=== PATIENT | male | born 1955 | race Caucasian/White ===

== ENCOUNTER 2018-01-02 18:25 | Observation (INO) | payer BC ==
--- NOTE | 2018-01-02 19:01 | EDM.PDOC ---
ED HPI GENERAL MEDICAL PROBLEM - General Chief Complaint: Respiratory Problem Stated Complaint: SOB Time Seen by Provider: 01/02/18 18:28 Source of Information: Reports: Patient History Limitations: Reports: No Limitations - History of Present Illness INITIAL COMMENTS - FREE TEXT/NARRATIVE: Patient presents to ER with complaints of shortness of breath and muscle spasms. Has been dealing with shortness of breath for over 3 years, had an extensive work up done through the [place] as he relates he was worried about asbestos exposure. He was told his lungs "were good". He states was at work and he felt more short of breath today [facility]. 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 Gets them in his hands, legs and buttocks at times. Has a mild cough with clear sputum production. He denies any chest pain. States his lungs burn at times. No fevers. No sinus congestion or sore throat. No N/V/D. Does admit that he has suffered from anxiety for many years , was discharged from the [facility] because of it. Not currently on any Xanax or Ativan, states he deals with his anxiety by drinking whiskey. Duration: Week(s):, Chronic Location: Reports: Chest Quality: Reports: Burning Severity: Moderate Improves with: Reports: Rest Associated Symptoms: Reports: Cough, Shortness of Breath. Denies: Confusion, Chest Pain, Diaphoresis, Fever/Chills, Loss of Appetite, Nausea/Vomiting, Syncope, Weakness Bilateral Leg Pain Score (Numeric/FACES): 9 - Related Data Allergies Allergy/AdvReac Type Severity Reaction Status Date / Time No Known Allergies Allergy Verified 01/02/18 18:32 Home Meds: Home Meds Insulin Aspart [NovoLOG] 10 - 30 unit SQ TIDMEALS 12/06/13 [History] Insulin Detemir [Levemir] 70 units SQ BID 12/06/13 [History] Aspirin [Ecotrin] 81 mg PO DAILY 01/02/18 [History] Chlorthalidone 25 mg PO DAILY 01/02/18 [History] Losartan [Cozaar] 100 mg PO DAILY 01/02/18 [History] Naproxen Sodium [Aleve] 3 tab PO DAILY 01/02/18 [History] amLODIPine [Norvasc] 10 mg PO DAILY 01/02/18 [History] atorvaSTATin [Lipitor] 20 mg PO DAILY 01/02/18 [History] Past Medical History Cardiovascular History: Reports: High Cholesterol, Hypertension Psychiatric History: Reports: Anxiety Endocrine/Metabolic History: Reports: Diabetes, Type II - Past Surgical History GI Surgical History: Reports: Appendectomy, Colonoscopy Social & Family History - Tobacco Use Smoking Status *Q: Never Smoker Years of Tobacco use: 10 Used Tobacco, but Quit: Yes Month/Year Tobacco Last Used: 09/20/2008 Second Hand Smoke Exposure: Yes - Alcohol Use Days Per Week of Alcohol Use: 7 Number of Drinks Per Day: 2 Total Drinks Per Week: 14 - Recreational Drug Use Recreational Drug Use: Yes Recreational Drug Type: Reports: Marijuana/Hashish Recreational Drug Use Frequency: Rarely ED ROS GENERAL - Review of Systems Review Of Systems: See Below Constitutional: Denies: Fever, Chills, Malaise, Weakness, Decreased Appetite HEENT: Denies: Ear Pain, Sinus Problem, Throat Pain Respiratory: Reports: Shortness of Breath, Cough, Sputum. Denies: Wheezing Cardiovascular: Denies: Chest Pain, Edema, Lightheadedness Endocrine: Reports: Fatigue GI/Abdominal: Denies: Abdominal Pain, Constipation, Diarrhea, Nausea, Vomiting : Reports: No Symptoms Musculoskeletal: Reports: Leg Pain, Muscle Pain Skin: Reports: No Symptoms Neurological: Reports: No Symptoms ED EXAM, GENERAL - Physical Exam Exam: See Below Exam Limited By: No Limitations General Appearance: Alert, WD/WN, No Apparent Distress Ears: Normal External Exam, Normal TMs Nose: Normal Inspection, Normal Mucosa, No Blood Throat/Mouth: Normal Inspection, Normal Oropharynx Head: Normocephalic Neck: Normal Inspection, Supple, Non-Tender Respiratory/Chest: No Respiratory Distress, Lungs Clear, Normal Breath Sounds Cardiovascular: Regular Rate, Rhythm GI/Abdominal: Normal Bowel Sounds, Soft, Non-Tender Extremities: No: Pedal Edema Neurological: Alert, Oriented Skin Exam: Warm, Dry Course - Vital Signs Last Recorded V/S: Last Vital Signs Temp 97.6 F 01/02/18 18:26 Pulse 78 01/02/18 18:26 Resp 20 01/02/18 18:26 BP 127/70 01/02/18 18:26 Pulse Ox 97 01/02/18 18:26 - Orders/Labs/Meds Orders: Active Orders 24 hr Category Date Time Status Chest 1V Frontal [CR] Stat Exams 01/02/18 18:37 Taken EKG 12 Lead [EK] Stat Ther 01/02/18 18:38 Ordered Labs: Laboratory Tests 01/02/18 01/02/18 01/02/18 Range/Units 18:45 18:45 18:45 WBC 10.5 H (5.0-10.0) 10^3/uL RBC 4.54 (4.50-6.00) 10^6/uL Hgb 14.3 (14.0-18.0) g/dL Hct 40.3 (40.0-54.0) % MCV 88.8 (82.0-94.0) fL MCH 31.5 (27.0-32.0) pg MCHC 35.5 (33.0-38.0) g/dL RDW Coeff of [place] 13.0 (11.0-15.0) % Plt Count 194 (150-400) 10^3/uL Neut % (Auto) 63.7 (35-85) % Lymph % (Auto) 25.3 (10-55) % [place] % (Auto) 7.6 (0-16) % Eos % (Auto) 2.9 (0-5) % Baso % (Auto) 0.5 (0-3) % Neut # (Auto) 6.70 (1.80-7.00) 10^3/uL Lymph # (Auto) 2.66 (1.00-4.80) 10^3/uL [place] # (Auto) 0.80 (0.00-0.80) 10^3/uL Eos # (Auto) 0.30 (0.00-0.45) 10^3/uL Baso # (Auto) 0.05 10^3/uL D-Dimer, Quantitative 0.21 (0.00-0.50) Sodium 136 (136-145) mEq/L Potassium 2.5 L* D (3.5-5.0) mEq/L Chloride 94 L (98-106) mEq/L Carbon Dioxide 27 (21-32) mmol/L BUN 38 H D (7-18) mg/dL Creatinine 1.7 H D (0.7-1.3) mg/dL Est Cr Clr Drug Dosing 55.31 mL/min Estimated GFR (MDRD) 41 L (>=60) mL/min Glucose 180 H D (75-99) mg/dL Calcium 9.9 (8.4-10.1) mg/dL Magnesium 2.2 (1.8-2.4) mg/dL C-Reactive Protein 2.3 H (0.2-0.8) mg/dL NT-Pro-B Natriuret Pep 923 (0-1000) pg/mL - Re-Assessments/Exams Free Text/Narrative Re-Assessment/Exam: 01/02/18 19:33 Labs reviewed. Potassium is 2.5, creatinine 1.7. Will admit for observation to Dr. Scanlon for IV fluids with potassium replacement. Departure - Departure Time of Disposition: 19:34 Disposition: Refer to Observation Condition: Fair Clinical Impression: Hypokalemia - Discharge Information - Problem List & Annotations (1) Muscle cramps SNOMED Code(s): 87191965 Code(s): R25.2 - CRAMP AND SPASM Status: Acute Priority: High Current Visit: Yes (2) Hypokalemia SNOMED Code(s): 67201911 Code(s): E87.6 - HYPOKALEMIA Status: Acute Priority: High Current Visit : Yes - Problem List Review Problem List Initiated/Reviewed/Updated: Yes - My Orders Last 24 Hours: My Active Orders 01/02/18 18:37 Chest 1V Frontal [CR] Stat 01/02/18 18:38 EKG 12 Lead [EK] Stat - Assessment/Plan Admission H&P: Please use this note as an admission H&P Last 24 Hours: My Active Orders 01/02/18 18:37 Chest 1V Frontal [CR] Stat 01/02/18 18:38 EKG 12 Lead [EK] Stat Assessment:: Hypokalemia Muscle spasms Plan: Admit for observation to Dr. Scanlon for potassium replacement as is symptomatic at this time. Patient aware.
[2018-01-02] MEDS ORDERED: Ondansetron 4 MG Tab.DIS PO PRN (19:53)
[2018-01-02] MEDS ORDERED: Potassium Chloride 40 MEQ in Premix Bag 1 BAG IV ONE (19:53)
[2018-01-02] MEDS ORDERED: Ondansetron 4 MG/2 ML SDV IV PRN (19:53)
[2018-01-02] MEDS ORDERED: Acetaminophen 325 MG Tab PO PRN (19:53)
[2018-01-02] MEDS ORDERED: Sodium Chloride 0.9% 10 ML Syringe FLUSH PRN (19:53)
[2018-01-02] MEDS ORDERED: ALPRAZolam 0.25 MG Tab PO PRN (19:53)
[2018-01-02] MEDS ORDERED: Sodium Chloride 0.9% 1,000 ML IV ONE (19:53)
[2018-01-02] MEDS ORDERED: Insulin Detemir 100 Units/ML 3 ML Pen SUBCUT SCH (20:00)
[2018-01-02] MEDS: Enoxaparin 40 MG/0.4 ML Syringe SUBCUT SCH (20:13)
[2018-01-02] MEDS ORDERED: Insulin Aspart 100 Units/ML 3 ML Pen ONE (21:30)
[2018-01-03] MEDS: NS + KCl 20mEq/L 1,000 ML IV SCH ×2 (00:24→18:04)
[2018-01-03] MEDS: Insulin Detemir 100 Units/ML 3 ML Pen SUBCUT SCH ×2 (03:29→17:25)
[2018-01-03 07:24] LABS: CHLORIDE,CL 98 mEq/L (98-106)
[2018-01-03 07:27] LABS: SODIUM,NA 139 mEq/L (136-145)
[2018-01-03] MEDS ORDERED: Potassium Chloride 40 MEQ in Premix Bag 1 BAG IV ONE (08:45)
--- NOTE | 2018-01-03 08:53 | PCM.PN ---
- General Info Date of Service: 01/03/18 Admission Dx/Problem (Free Text): Hyponatremia Functional Status: Reports: Pain Controlled, Tolerating Diet, Ambulating - Review of Systems General: Reports: Fatigue. Denies: Fever, Weakness HEENT: Reports: No Symptoms Pulmonary: Denies: Shortness of Breath, Cough Cardiovascular: Denies: Chest Pain, Edema, Lightheadedness Gastrointestinal: Denies: Abdominal Pain, Nausea, Vomiting Genitourinary: Reports: No Symptoms Musculoskeletal: Denies: Leg Pain (states not having any further leg cramps this am) Skin: Reports: No Symptoms Neurological: Reports: No Symptoms - Patient Data Vitals - Most Recent: Last Vital Signs Temp 96.5 F 01/03/18 07:23 Pulse 70 01/03/18 07:23 Resp 19 01/03/18 07:23 BP 128/65 01/03/18 07:23 Pulse Ox 97 01/03/18 07:23 Weight - Most Recent: 260 lb Lab Results Last 24 Hours: Laboratory Results - last 24 hr 01/02/18 01/02/18 01/02/18 Range/Units 18:45 18:45 18:45 WBC 10.5 H (5.0-10.0) 10^3/uL RBC 4.54 (4.50-6.00) 10^6/uL Hgb 14.3 (14.0-18.0) g/dL Hct 40.3 (40.0-54.0) % MCV 88.8 (82.0-94.0) fL MCH 31.5 (27.0-32.0) pg MCHC 35.5 (33.0-38.0) g/dL RDW Coeff of [place] 13.0 (11.0-15.0) % Plt Count 194 (150-400) 10^3/uL Neut % (Auto) 63.7 (35-85) % Lymph % (Auto) 25.3 (10-55) % [place] % (Auto) 7.6 (0-16) % Eos % (Auto) 2.9 (0-5) % Baso % (Auto) 0.5 (0-3) % Neut # (Auto) 6.70 (1.80-7.00) 10^3/uL Lymph # (Auto) 2.66 (1.00-4.80) 10^3/uL [place] # (Auto) 0.80 (0.00-0.80) 10^3/uL Eos # (Auto) 0.30 (0.00-0.45) 10^3/uL Baso # (Auto) 0.05 10^3/uL D-Dimer, Quantitative 0.21 (0.00-0.50) Sodium 136 (136-145) mEq/L Potassium 2.5 L* D (3.5-5.0) mEq/L Chloride 94 L (98-106) mEq/L Carbon Dioxide 27 (21-32) mmol/L BUN 38 H D (7-18) mg/dL Creatinine 1.7 H D (0.7-1.3) mg/dL Est Cr Clr Drug Dosing 55.31 mL/min Estimated GFR (MDRD) 41 L (>=60) mL/min Glucose 180 H D (75-99) mg/dL POC Glucose (75-105) mg/dl Calcium 9.9 (8.4-10.1) mg/dL Magnesium 2.2 (1.8-2.4) mg/dL C-Reactive Protein 2.3 H (0.2-0.8) mg/dL NT-Pro-B Natriuret Pep 923 (0-1000) pg/mL 01/02/18 01/03/18 01/03/18 Range/Units 20:27 06:55 06:55 WBC 9.0 (5.0-10.0) 10^3/uL RBC 4.40 L (4.50-6.00) 10^6/uL Hgb 13.8 L (14.0-18.0) g/dL Hct 40.2 (40.0-54.0) % MCV 91.4 (82.0-94.0) fL MCH 31.4 (27.0-32.0) pg MCHC 34.3 (33.0-38.0) g/dL RDW Coeff of [place] 13.1 (11.0-15.0) % Plt Count 164 (150-400) 10^3/uL Neut % (Auto) 66.6 (35-85) % Lymph % (Auto) 22.2 (10-55) % [place] % (Auto) 7.5 (0-16) % Eos % (Auto) 3.3 (0-5) % Baso % (Auto) 0.4 (0-3) % Neut # (Auto) 5.97 (1.80-7.00) 10^3/uL Lymph # (Auto) 1.99 (1.00-4.80) 10^3/uL [place] # (Auto) 0.67 (0.00-0.80) 10^3/uL Eos # (Auto) 0.30 (0.00-0.45) 10^3/uL Baso # (Auto) 0.04 10^3/uL D-Dimer, Quantitative (0.00-0.50) Sodium 139 (136-145) mEq/L Potassium 2.8 L* (3.5-5.0) mEq/L Chloride 98 (98-106) mEq/L Carbon Dioxide 30 (21-32) mmol/L BUN 28 H (7-18) mg/dL Creatinine 1.0 (0.7-1.3) mg/dL Est Cr Clr Drug Dosing 94.03 mL/min Estimated GFR (MDRD) > 60 (>=60) mL/min Glucose 81 D (75-99) mg/dL POC Glucose 218 H (75-105) mg/dl Calcium 8.9 (8.4-10.1) mg/dL Magnesium (1.8-2.4) mg/dL C-Reactive Protein 2.2 H (0.2-0.8) mg/dL NT-Pro-B Natriuret Pep (0-1000) pg/mL 01/03/18 Range/Units 07:26 WBC (5.0-10.0) 10^3/uL RBC (4.50-6.00) 10^6/uL Hgb (14.0-18.0) g/dL Hct (40.0-54.0) % MCV (82.0-94.0) fL MCH (27.0-32.0) pg MCHC (33.0-38.0) g/dL RDW Coeff of [place] (11.0-15.0) % Plt Count (150-400) 10^3/uL Neut % (Auto) (35-85) % Lymph % (Auto) (10-55) % [place] % (Auto) (0-16) % Eos % (Auto) (0-5) % Baso % (Auto) (0-3) % Neut # (Auto) (1.80-7.00) 10^3/uL Lymph # (Auto) (1.00-4.80) 10^3/uL [place] # (Auto) (0.00-0.80) 10^3/uL Eos # (Auto) (0.00-0.45) 10^3/uL Baso # (Auto) 10^3/uL D-Dimer, Quantitative (0.00-0.50) Sodium (136-145) mEq/L Potassium (3.5-5.0) mEq/L Chloride (98-106) mEq/L Carbon Dioxide (21-32) mmol/L BUN (7-18) mg/dL Creatinine (0.7-1.3) mg/dL Est Cr Clr Drug Dosing mL/min Estimated GFR (MDRD) (>=60) mL/min Glucose (75-99) mg/dL POC Glucose 53 L (75-105) mg/dl Calcium (8.4-10.1) mg/dL Magnesium (1.8-2.4) mg/dL C-Reactive Protein (0.2-0.8) mg/dL NT-Pro-B Natriuret Pep (0-1000) pg/mL Med Orders - Current: Current Medications Acetaminophen (Tylenol) 650 mg PO Q4H PRN PRN Reason: Pain (Mild 1-3)/fever Alprazolam (Xanax) 0.25 mg PO Q6H PRN PRN Reason: Anxiety Amlodipine Besylate (Norvasc) 10 mg PO DAILY [facility] Aspirin (Halfprin) 81 mg PO DAILY [facility] Atorvastatin Calcium (Lipitor) 20 mg PO DAILY [facility] Enoxaparin Sodium (Lovenox) 40 mg SUBCUT Q24H [facility] Last Admin: 01/02/18 20:13 Dose: 40 mg Potassium Chloride/Sodium Chloride (Normal Saline With 20 Meq Kcl) 1,000 mls @ 100 mls/hr IV ASDIRECTED [facility] Last Admin: 01/03/18 00:24 Dose: 100 mls/hr Potassium Chloride 40 meq/ (Premix) 100 mls @ 25 mls/hr IV ONETIME ONE Stop: 01/03/18 12:26 Insulin Aspart (Novolog) 10 - 30 unit SUBCUT TIDMEALS [facility] Insulin Detemir (Levemir) 0 unit SUBCUT Q12H [facility] Last Admin: 01/03/18 03:29 Dose: 70 units Losartan Potassium (Cozaar) 100 mg PO DAILY [facility] Ondansetron HCl (Zofran Odt) 4 mg PO Q4H PRN PRN Reason: nausea, able to take PO Ondansetron HCl (Zofran) 4 mg IV Q4H PRN PRN Reason: Nausea/Vomiting Potassium Chloride (Klor-Con 10) 20 meq PO DAILY [facility] Sodium Chloride (Saline Flush) 10 ml FLUSH ASDIRECTED PRN PRN Reason: Keep Vein Open Discontinued Medications Potassium Chloride 40 meq/ (Premix) 100 mls @ 25 mls/hr IV ONETIME ONE Stop: 01/02/18 23:52 Last Admin: 01/02/18 20:13 Dose: 25 mls/hr Sodium Chloride (Normal Saline) 1,000 mls @ 150 mls/hr IV ONETIME ONE Stop: 01/03/18 02:32 Last Admin: 01/02/18 20:13 Dose: 250 mls/hr Insulin Aspart (Novolog) Confirm Administered Dose 300 unit .ROUTE .STK-MED ONE Stop: 01/02/18 21:31 Last Admin: 01/02/18 21:16 Dose: Not Given Insulin Detemir (Levemir) 0 unit SUBCUT BID [facility] Last Admin: 01/02/18 21:17 Dose: Not Given - Exam General: Alert, Oriented HEENT: Mucous Membr. Moist/[place] Neck: Supple Lungs: Clear to Auscultation, Normal Respiratory Effort Cardiovascular: Regular Rate, Regular Rhythm GI/Abdominal Exam: Normal Bowel Sounds, Soft, Non-Tender Extremities: Normal Inspection, No Pedal Edema Skin: Warm, Dry Neurological: No New Focal Deficit - Problem List & Annotations (1) Muscle cramps SNOMED Code(s): 77105292 Code(s): R25.2 - CRAMP AND SPASM Status: Acute Priority: High Current Visit: Yes (2) Hypokalemia SNOMED Code(s): 61872510 Code(s): E87.6 - HYPOKALEMIA Status: Acute Priority: High Current Visit : Yes - Problem List Review Problem List Initiated/Reviewed/Updated: Yes - My Orders Last 24 Hours: My Active Orders 01/02/18 18:37 Chest 1V Frontal [CR] Stat 01/02/18 19:38 Resuscitation Status Routine 01/02/18 19:53 Patient Status [ADT] Routine Cardiac Monitoring [RC] Oxygen Therapy [RC] .PRN Peripheral IV Care [RC] 799,1999 Up With Assistance [RC] .PRN Vital Signs [RC] 0000,0400,0800,1200,1600,2000 ALPRAZolam [Xanax] 0.25 mg PO Q6H PRN Acetaminophen [Tylenol] 650 mg PO Q4H PRN NS + KCl 20mEq/L [Normal Saline with 20 mEq KCl] 1,000 ml IV ASDIRECTED Ondansetron [Zofran ODT] 4 mg PO Q4H PRN Ondansetron [Zofran] 4 mg IV Q4H PRN Sodium Chloride 0.9% [Saline Flush] 10 ml FLUSH ASDIRECTED PRN Peripheral IV Insertion Adult [OM.PC] Routine 01/02/18 20:00 Enoxaparin [Lovenox] 40 mg SUBCUT Q24H 01/02/18 Breakfast Consistent Carbohydrate Diet [DIET] 01/03/18 03:00 Insulin Detemir [Levemir] 0 unit SUBCUT Q12H 01/03/18 08:00 Aspirin [Halfprin] 81 mg PO DAILY Insulin Aspart [NovoLOG] 10 - 30 unit SUBCUT TIDMEALS Losartan [Cozaar] 100 mg PO DAILY amLODIPine [Norvasc] 10 mg PO DAILY atorvaSTATin [Lipitor] 20 mg PO DAILY 01/03/18 08:27 Potassium Chloride [KCL 40 MEQ in Water 100 ML] 40 meq Premix Bag 1 bag IV ONETIME 01/03/18 08:45 Potassium Chloride [Klor-Con 10] 20 meq PO DAILY 01/03/18 15:00 POTASSIUM,K [CHEM] Routine - Assessment Assessment:: Hyponatremia - Plan Plan:: Patient feeling good this am, states tired but not feeling short of breath. No further leg cramping this am. Appetite is good. Does not feel as anxious this am. Potassium still low at 2.8. Blood pressure maintaining normotensive without the Chlorthalidone at this point. Will give additional IV potassium, started on oral potassium today. Will repeat potassium labs this afternoon and proceed from there. Continue to hold chlorthalidone.
[2018-01-03] MEDS: Potassium Chloride 10 MEQ Tab.ER PO SCH (08:57)
[2018-01-03] MEDS: Aspirin 81 MG Tab.EC PO SCH (08:57)
[2018-01-03] MEDS: Insulin Aspart 100 Units/ML 3 ML Pen SUBCUT SCH ×3 (08:58→17:27)
[2018-01-03] MEDS ORDERED: Sodium Chloride 0.9% 250 ML ONE (09:11)
[2018-01-03] MEDS: Losartan 100 MG Tab PO SCH (17:22)
[2018-01-03] MEDS: **PTOM** atorvaSTATin 20 MG Tab PO SCH (17:22)
[2018-01-03] MEDS: **PTOM** amLODIPine 10 MG Tab PO SCH (17:23)
[2018-01-03] MEDS: Enoxaparin 40 MG/0.4 ML Syringe SUBCUT SCH (20:26)
[2018-01-04] MEDS: Insulin Detemir 100 Units/ML 3 ML Pen SUBCUT SCH (03:10)
[2018-01-04] MEDS: NS + KCl 20mEq/L 1,000 ML IV SCH (03:14)
[2018-01-04 07:30] LABS: CHLORIDE,CL 100 mEq/L (98-106); SODIUM,NA 140 mEq/L (136-145)
[2018-01-04] MEDS: **PTOM** atorvaSTATin 20 MG Tab PO SCH (07:49)
[2018-01-04] MEDS: Losartan 100 MG Tab PO SCH (07:49)
[2018-01-04] MEDS: **PTOM** amLODIPine 10 MG Tab PO SCH (07:50)
[2018-01-04] MEDS: Insulin Aspart 100 Units/ML 3 ML Pen SUBCUT SCH (07:52)
[2018-01-04] MEDS ORDERED: **PTOM** atorvaSTATin 20 MG Tab PO SCH (08:00)
[2018-01-04] MEDS: Potassium Chloride 10 MEQ Tab.ER PO SCH (08:02)
[2018-01-04] MEDS: Aspirin 81 MG Tab.EC PO SCH (08:02)
--- NOTE | 2018-01-05 20:39 | PCM.DCSUM1 ---
Discharge Summary - Hospital Course Free Text/Narrative:: Patient presented to ER with complaints of shortness of breath and muscle cramps. Has been having issues with shortness of breath for years but believes it was worse day of admission. Had been having frequent muscle cramps which he feels increased his anxiety and shortness of breath. Has had extensive work up through the [place] for his shortness of breath without finding a source. Long history of anxiety back to early years in the [employer]. Not currently on any medication for his anxiety. Today, felt more uncomfortable, having intense cramping in his hands, legs and buttocks. Was found to have a potassium of 2.5 in ER. Admitted for IV potassium replacement, cardiac monitoring. Chlorthalidone held - Discharge Data Discharge Date: 01/04/18 Discharge Disposition: Home, Self-Care 01 Preliminary Cause of *Q: Respiratory Failure Condition: Good - Discharge Diagnosis/Problem(s) (1) Muscle cramps SNOMED Code(s): 76675075 ICD Code: R25.2 - CRAMP AND SPASM Status: Acute Priority: High (2) Hypokalemia SNOMED Code(s): 13312974 ICD Code: E87.6 - HYPOKALEMIA Status: Acute Priority: High - Patient Summary/Data Complications: none Hospital Course: Patient admitted with a potassium of 2.5. Started on NS with 40 meq of potassium. Cardiac monitoring. Other labs unremarkable. Slow improvement of his potassium level. Much improvement of the muscle cramping as potassium levels improving. No further cramping by discharge. No telemetry changes noted. Chlorthalidone on hold but blood pressure remains stable yet on discharge. Potassium 3.7 today Will continue to hold Chlorthalidone, potassium 20 meq daily until follow up appointment with Dr. Ellison next week at the [place]. Monitor blood pressure and report changes to Dr. Irena Ellison at the [facility] - Patient Instructions Diet: Diabetic Diet Activity: As Tolerated - Discharge Plan Prescriptions/Med Rec: Potassium Chloride [Klor-Con 10] 20 meq PO DAILY #10 tab.er Home Medications: Home Meds Insulin Aspart [NovoLOG] 10 - 30 unit SQ TIDMEALS 12/06/13 [History] Insulin Detemir [Levemir] 70 units SQ BID 12/06/13 [History] Aspirin [Ecotrin] 81 mg PO DAILY 01/02/18 [History] Losartan [Cozaar] 100 mg PO DAILY 01/02/18 [History] Naproxen Sodium [Aleve] 3 tab PO DAILY 01/02/18 [History] amLODIPine [Norvasc] 10 mg PO DAILY 01/02/18 [History] atorvaSTATin [Lipitor] 20 mg PO DAILY 01/02/18 [History] Potassium Chloride [Klor-Con 10] 20 meq PO DAILY #10 tab.er 01/04/18 [Rx] Patient Handouts: Muscle Cramps and Spasms, Hypokalemia Forms: ED Department Discharge Referrals: Mary Ellison MD [Ordering Only Provider] - (Follow up with Dr. Irena Ellison in one week, needs panel 8 at that time.) - Discharge Summary/Plan Comment DC Time >30 min.: No Discharge Summary/Plan Comment: Discharge home. Continue potassium 20 mEq daily. Hold Chlorthalidone. Follow up for labs and recheck with DR. Irena Ellison next week. - General Info Date of Service: 01/04/18 Admission Dx/Problem (Free Text: Hyponatremia Functional Status: Reports: Pain Controlled, Tolerating Diet, Ambulating - Review of Systems General: Reports: Weakness. Denies: Fever, Fatigue HEENT: Reports: No Symptoms Pulmonary: Denies: Shortness of Breath, Cough Cardiovascular: Reports: Edema, Lightheadedness. Denies: Chest Pain Gastrointestinal: Reports: No Symptoms Musculoskeletal: Reports: No Symptoms Skin: Reports: No Symptoms Neurological: Reports: No Symptoms - Patient Data Vitals - Most Recent: Last Vital Signs Temp 99.0 F 01/04/18 07:43 Pulse 69 01/04/18 07:43 Resp 20 01/04/18 07:43 BP 134/66 01/04/18 07:50 Pulse Ox 98 01/04/18 07:43 Weight - Most Recent: 260 lb Med Orders - Current: Current Medications Discontinued Medications Acetaminophen (Tylenol) 650 mg PO Q4H PRN PRN Reason: Pain (Mild 1-3)/fever Alprazolam (Xanax) 0.25 mg PO Q6H PRN PRN Reason: Anxiety Amlodipine Besylate (Norvasc) 10 mg PO DAILY [facility] Last Admin: 01/04/18 07:50 Dose: 10 mg Aspirin (Halfprin) 81 mg PO DAILY [facility] Last Admin: 01/04/18 08:02 Dose: 81 mg Atorvastatin Calcium (Lipitor) 20 mg PO DAILY [facility] Last Admin: 01/03/18 17:22 Dose: 20 mg Atorvastatin Calcium (Lipitor) 10 mg PO DAILY [facility] Last Admin: 01/04/18 09:16 Dose: 10 mg Enoxaparin Sodium (Lovenox) 40 mg SUBCUT Q24H [facility] Last Admin: 01/03/18 20:26 Dose: 40 mg Potassium Chloride 40 meq/ (Premix) 100 mls @ 25 mls/hr IV ONETIME ONE Stop: 01/02/18 23:52 Last Admin: 01/02/18 20:13 Dose: 25 mls/hr Sodium Chloride (Normal Saline) 1,000 mls @ 150 mls/hr IV ONETIME ONE Stop: 01/03/18 02:32 Last Admin: 01/02/18 20:13 Dose: 250 mls/hr Potassium Chloride/Sodium Chloride (Normal Saline With 20 Meq Kcl) 1,000 mls @ 100 mls/hr IV ASDIRECTED [facility] Last Admin: 01/04/18 03:14 Dose: 100 mls/hr Potassium Chloride 40 meq/ (Premix) 100 mls @ 25 mls/hr IV ONETIME ONE Stop: 01/03/18 12:44 Last Admin: 01/03/18 08:59 Dose: 25 mls/hr Sodium Chloride (Normal Saline) Confirm Administered Dose 250 mls @ as directed .ROUTE .STK-MED ONE Stop: 01/03/18 09:12 Last Admin: 01/03/18 09:10 Dose: 25 mls/hr Insulin Aspart (Novolog) 10 - 30 unit SUBCUT TIDMEALS [facility] Last Admin: 01/04/18 07:52 Dose: 20 units Insulin Aspart (Novolog) Confirm Administered Dose 300 unit .ROUTE .STK-MED ONE Stop: 01/02/18 21:31 Last Admin: 01/02/18 21:16 Dose: Not Given Insulin Detemir (Levemir) 0 unit SUBCUT BID [facility] Last Admin: 01/02/18 21:17 Dose: Not Given Insulin Detemir (Levemir) 0 unit SUBCUT Q12H [facility] Last Admin: 01/04/18 03:10 Dose: 70 units Losartan Potassium (Cozaar) 100 mg PO DAILY [facility] Last Admin: 01/04/18 07:49 Dose: 100 mg Ondansetron HCl (Zofran Odt) 4 mg PO Q4H PRN PRN Reason: nausea, able to take PO Ondansetron HCl (Zofran) 4 mg IV Q4H PRN PRN Reason: Nausea/Vomiting Potassium Chloride (Klor-Con 10) 20 meq PO DAILY [facility] Last Admin: 01/04/18 08:02 Dose: 20 meq Sodium Chloride (Saline Flush) 10 ml FLUSH ASDIRECTED PRN PRN Reason: Keep Vein Open - Exam General: Reports: Alert, Oriented HEENT: Reports: Mucous Membr. Moist/[place] Neck: Reports: Supple Lungs: Reports: Clear to Auscultation, Normal Respiratory Effort Cardiovascular: Reports: Regular Rate, Regular Rhythm GI/Abdominal Exam: Normal Bowel Sounds, Soft, Non-Tender Extremities: Normal Inspection, No Pedal Edema Skin: Reports: Warm, Dry Neurological: Reports: No New Focal Deficit
== END 2018-01-04 10:45 | disposition home or self-care (01) ==
LOC: CC.ED 18:25 → CC.MS 19:09 → UNDOADMOB 19:09 → CC.MS 19:38
PROVIDERS: ADMIT Physician Assistant Medical; ATTEND Family Medicine
DX: E87.6 Hypokalemia (principal); E87.1 Hypo-osmolality and hyponatremia; E78.00 Pure hypercholesterolemia, unspecified; F41.9 Anxiety disorder, unspecified; E11.9 Type 2 diabetes mellitus without complications; Z90.49 Acquired absence of other specified parts of digestive tract; Z79.4 Long term (current) use of insulin; Z79.82 Long term (current) use of aspirin; Z79.899 Other long term (current) drug therapy
CPT/HCPCS: 36415; 71045; 80048; 82962; 83735; 83880; 84132; 85025; 85379; 86140; 93005; 96361; 96365; 96366; 96372; 96376; 99285; A9270-GY; G0378; J1650; J1815-GY; J3480; J7030; J7050

== ENCOUNTER → 2019-12-08 | Day surgery (SDC) | payer OTHER ==
[~2019-12-08] MED LIST: Midazolam 1 MG/ML 2 ML SDV IV ONE; Propofol 200 MG/20 ML SDV IV ONE; fentaNYL 100 MCG/2 ML SDV IV ONE
[2019-12-08] MEDS: Lactated Ringers 1,000 ML IV SCH (08:20)
--- NOTE | 2019-12-11 09:09 | OR ---
DATE OF OPERATION: 12/08/2019 PREOPERATIVE DIAGNOSIS: HISTORY OF POLYPS. POSTOPERATIVE DIAGNOSIS: HISTORY OF POLYPS. SURGEON: Danny Scanlon MD PROCEDURE: DIAGNOSTIC COLONOSCOPY WITH SNARE POLYPECTOMY X2. ANESTHESIA: MAC. COMPLICATIONS: None. SPECIMEN: Tubular adenomas x2, each approximately 0.5 cm. FINDINGS: 1. Full-length colonoscopy. 2. Poor bowel prep. 3. Tubular adenomas x2, see report. RECOMMENDATIONS: Followup colonoscopy in 5 years. INDICATIONS: The patient comes to us from the [place]. Nine years ago, he had a polypectomy by Dr. Torres. He has not had a followup colonoscopy since, he is overdue. DESCRIPTION OF PROCEDURE: The patient was prepped and draped, placed in the left lateral decubitus position. A lubricated Olympus colonoscope was inserted and easily advanced to the cecum. Direct visualization of the ileocecal valve and appendiceal orifice was accomplished. The bowel prep was poor. The patient had a lot of scattered areas of heavy stool. Multiple times the scope got clogged. We had to run a forceps down to unclog it. Many areas likely could not be visualized adequately enough to rule out smaller lesions. At the proximal transverse colon, the patient did have a stalk tubular adenoma removed easily with a snare and suctioned into polyp trap #1. The second polyp was located in the middle of the rectal vault, also removed with a snare and suctioned into polyp trap #2. There were scattered diverticula in the sigmoid area, but very mild in severity. No other gross abnormality, signs of colitis, vascular abnormalities, or bleeding sites could be seen. Retroflexion of the scope in the rectum could not be accomplished due to the volume of stool present. Upon direct withdrawal, no gross perirectal lesions were seen. The scope was removed safely. The patient was stable in recovery room. LILI/PLACIDO /[id number]
== END ==
LOC: CC.SDS 07:56
PROVIDERS: ATTEND Family Medicine
DX: Z12.11 Encounter for screening for malignant neoplasm of colon (principal); D12.3 Benign neoplasm of transverse colon; D12.8 Benign neoplasm of rectum; K57.30 Diverticulosis of large intestine without perforation or abscess without bleeding; E78.5 Hyperlipidemia, unspecified; I10 Essential (primary) hypertension; E11.8 Type 2 diabetes mellitus with unspecified complications; E55.9 Vitamin D deficiency, unspecified; F31.9 Bipolar disorder, unspecified; H26.9 Unspecified cataract; F10.20 Alcohol dependence, uncomplicated; H90.3 Sensorineural hearing loss, bilateral; Z90.49 Acquired absence of other specified parts of digestive tract; Z86.010 Personal history of colon polyps; Z79.4 Long term (current) use of insulin; Z98.890 Other specified postprocedural states; Z79.899 Other long term (current) drug therapy; Z87.891 Personal history of nicotine dependence; Y90.9 Presence of alcohol in blood, level not specified
CPT/HCPCS: 45385; J2250; J2704; J3010; J7120

== ENCOUNTER 2020-02-19 20:36 | Emergency (ER) | payer OTHER ==
[~2020-02-19 20:36] MED LIST changes: +Calcium Chloride 10% 1 GM/10 ML Syringe IVPUSH ONE; -Midazolam 1 MG/ML 2 ML SDV IV ONE; -Propofol 200 MG/20 ML SDV IV ONE; +Sodium Bicarbonate 8.4% 50 MEQ/50 ML Syringe IV ONE; +Sodium Chloride 0.9% 1,000 ML IV ONE; -fentaNYL 100 MCG/2 ML SDV IV ONE
[2020-02-19] MEDS: EPINEPHrine 1:10,000 1 MG/10 ML Syringe IVPUSH PRN ×3 (20:41→20:48)
--- NOTE | 2020-02-19 21:22 | EDM.PDOC ---
ED HPI GENERAL MEDICAL PROBLEM - General Chief Complaint: CPR in Progress Stated Complaint: CODE MARILU Time Seen by Provider: 02/19/20 20:36 Source of Information: Reports: EMS History Limitations: Reports: No Limitations - History of Present Illness INITIAL COMMENTS - FREE TEXT/NARRATIVE: Dawit presents to ED via [facility] with CPR in progress. Ambrose providing compressions. Zach airway in place with bilateral breath sounds. He apparently had witnessed collapse by someone who was driving by. 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 Time of collapse 1999. EMS dispatched and continued CPR. Patient arrived to ED at 2035. Pupils fixed and dilated. EMS reports he had 1 shockable rhythm, so received 1 shock, but otherwise has been PEA/asystole. 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 IO placed upon arrival and epi administered. Blood sugar 102. ACLS continued. Patient received epi x 3, CaCl x 1, and bicarb x1 without change in status. Pule checks remained asystole with escape beats. Attempted to contact family without success. Patient down approximately 40 minutes prior to arrival to ED. Ultimately, feel that patient has been down to long and continued CPR will not result in any improvement. Time of 2048. Onset: Today, Sudden Onset Date: 02/19/20 Onset Time: 20:00 - Related Data Allergies Allergy/AdvReac Type Severity Reaction Status Date / Time No Known Allergies Allergy Verified 02/19/20 21:15 Home Meds: Home Meds Insulin Aspart [NovoLOG] 12 unit SQ TIDMEALS 12/06/13 [History] Insulin Detemir [Levemir] 35 units SQ BID 12/06/13 [History] Aspirin [Ecotrin EC] 81 mg PO DAILY 01/02/18 [History] Chlorthalidone 25 mg PO DAILY 12/07/19 [History] Multivitamin [Multiple Vitamins] 1 each PO DAILY 12/07/19 [History] Naproxen 500 mg PO BID PRN 12/07/19 [History] Losartan [Cozaar] 100 mg PO DAILY 12/08/19 [History] Potassium Chloride 20 meq PO BID 12/08/19 [History] amLODIPine Besylate [Amlodipine Besylate] 10 mg PO DAILY 12/08/19 [History] atorvaSTATin Calcium [Atorvastatin Calcium] 10 mg PO BEDTIME 12/08/19 [History] metFORMIN HCl [Metformin HCl] 500 mg PO DAILY 12/08/19 [History] Past Medical History Cardiovascular History: Reports: High Cholesterol, Hypertension Psychiatric History: Reports: Anxiety Endocrine/Metabolic History: Reports: Diabetes, Type II - Past Surgical History GI Surgical History: Reports: Appendectomy, Colonoscopy Social & Family History - Caffeine Use Caffeine Use: Reports: None - Alcohol Use Alcohol Use History: Yes Alcohol Use Frequency: Binges, Daily Alcohol Use Comment: Per Family, patient was alcoholic, had apparently not been drinking recently ED ROS GENERAL - Review of Systems Review Of Systems: Unable To Obtain Reason Not Obtained: Unresponsive, CPR in progress ED EXAM, CPR - Physical Exam Exam: See Below Limited By: Unresponsive, Other (CPR in progress) Eye Exam: Bilateral Eye: Other (Fixed and dilated) Throat/Mouth: Other (Zach airway in place) Head: Atraumatic, Normocephalic Respiratory Chest: Other (breath sounds bilaterally with bagging) Cardiovascular: Pulse with Compression (femoral), CPR In Progress (Male) Exam: Scrotal Swelling Extremities: No Pedal Edema Neurological: Unresponsive Skin Exam: Cool Course - Orders/Labs/Meds Orders: Active Orders 24 hr Category Date Time Status EPINEPHrine [EPINEPHrine 1:10,000] Med 02/19/20 20:30 Active 1 mg IVPUSH Q3M PRN IO Insertion [Intraosseous Insertion] [OM.PC] Routine Oth 02/19/20 20:30 Ordered Medication Orders Epinephrine HCl (Epinephrine 1:10,000) 1 mg IVPUSH Q3M PRN PRN Reason: Arrhythmia Last Admin: 02/19/20 20:48 Dose: 1 mg Admin: 02/19/20 20:45 Dose: 1 mg Admin: 02/19/20 20:41 Dose: 1 mg Meds: Medications Generic Name Dose Route Start Last Admin Trade Name Freq PRN Reason Stop Dose Admin Epinephrine HCl 1 mg 02/19/20 20:30 02/19/20 20:48 Epinephrine 1:10,000 IVPUSH 1 mg Q3M PRN Administration Arrhythmia Discontinued Medications Generic Name Dose Route Start Last Admin Trade Name Freq PRN Reason Stop Dose Admin Calcium Chloride 1 gm 02/19/20 20:30 02/19/20 20:47 Calcium Chloride 10% IVPUSH 02/19/20 20:31 1 gm ONETIME ONE Administration Sodium Chloride 1,000 mls @ 999 mls/hr 02/19/20 20:30 02/20/20 00:21 Normal Saline IV 02/19/20 21:30 999 mls/hr .BOLUS ONE Administration Sodium Bicarbonate 50 meq 02/19/20 20:30 02/19/20 20:47 Sodium Bicarbonate 8.4% IV 02/19/20 20:31 50 meq STAT ONE Administration Departure - Departure Time of Disposition: 20:49 Disposition: 20 Preliminary Cause of *Q: Cardiac Arrest Clinical Impression: Cardiac arrest - Discharge Information *PRESCRIPTION DRUG MONITORING PROGRAM REVIEWED*: Not Applicable *COPY OF PRESCRIPTION DRUG MONITORING REPORT IN PATIENT MAJO: Not Applicable Referrals: PCP,Unknown [Primary Care Provider] - Forms: ED Department Discharge Sepsis Event Note - Focused Exam Date Exam was Performed: 02/20/20 Time Exam was Performed: 10:31 - Problem List & Annotations (1) Cardiac arrest SNOMED Code(s): 932463730 Code(s): I46.9 - CARDIAC ARREST, CAUSE UNSPECIFIED Status: Acute Current Visit: No - My Orders Last 24 Hours: My Active Orders 02/19/20 20:30 EPINEPHrine [EPINEPHrine 1:10,000] 1 mg IVPUSH Q3M PRN IO Insertion [Intraosseous Insertion] [OM.PC] Routine - Assessment/Plan Last 24 Hours: My Active Orders 02/19/20 20:30 EPINEPHrine [EPINEPHrine 1:10,000] 1 mg IVPUSH Q3M PRN IO Insertion [Intraosseous Insertion] [OM.PC] Routine Assessment:: Cardiac Arrest Plan: Patient presented to ED via EMS with CPR in progress. Patient had witnessed collapse with CPR initiated on scene by bystander. Apparently received shock x 1 per EMS. ACLS continued upon arrival to ED. Patient received epi x3, CaClx1, and Bicarb x1 without change in status. Attempted to contact son multiple times without success. Sarthak BLACKWOOD was able to contact patient's sister. Ultimately , patient down 49 minutes without any change in status. Pupils fixed and dilated bilaterally. [place] that continued CPR would not result in any improvement. Time of expiration 2048.
== END 2020-02-20 10:20 | disposition expired ==
LOC: CC.ED 20:36
DX: I46.9 Cardiac arrest, cause unspecified (principal); I10 Essential (primary) hypertension; E11.9 Type 2 diabetes mellitus without complications; E78.00 Pure hypercholesterolemia, unspecified; Z79.4 Long term (current) use of insulin; Z79.82 Long term (current) use of aspirin; Z79.899 Other long term (current) drug therapy
CPT/HCPCS: 92950; 96374; 96375; 99285; 99285-25; J0171; J7030